=== PATIENT | female | born 1965 | race American Indian/Alaskan Native ===

== ENCOUNTER 2016-07-19 00:57 | Inpatient (IN) | payer OTHER ==
[2016-07-19 01:09] VITALS: BMI 43.2
--- NOTE | 2016-07-19 01:10 | C.PDOC ---
History Of Present Illness pt with history of right hemiplegia, presents with new onset of slurred speech since yesterday (07/17/16)yesterday. Significant other also noticed some right facial droop. no f/c/n/v Time Seen by Provider: 07/19/16 01:09 History Per: Patient, Family History/Exam Limitations: no limitations Onset/Duration Of Symptoms: Hrs (7) Current Symptoms Are (Timing): Still Present Severity: Moderate Pain Scale Rating Of: 5 Reports Recently: Seen In ED, Treated By A Physician, Hospitalized Recent travel outside of the [place]: No Additional History Per: Family Past Medical History Reviewed: Historical Data, Nursing Documentation, Vital Signs Vital Signs: Last Vital Signs Temp 97.7 F 07/19/16 01:33 Pulse 67 07/19/16 03:18 Resp 14 07/19/16 03:18 BP 189/99 H 07/19/16 03:18 Pulse Ox 98 07/19/16 03:18 - Medical History PMH: Anemia, Asthma, Diabetes, HTN, Hypercholesterolemia, Malignancy (Brain tumor - excised 3 yrs ago), Pneumonia, Seizures, TIA Denies: Alzheimer's Disease, Anxiety, Arthritis, Atrial Fibrillation, Bipolar Disorder, Bronchitis, Cardia Arrhythmia, CHF, COPD, Crohn's Disease, Dementia, Depression, Diverticulitis, Emphysema, Fibromyalgia, Fractures, Gastritis, Gastrointestinal Ulcer, Gall Bladder Disease, HIV, Hyperthyroidism, Hypothyroidism, Kidney Stones, Migraine, Mitral Valve Prolapse, Multiple Sclerosis, Osteoporosis, Pancreatitis, Paranoia, Parkinson's Disease, Peripheral Edema, Post Traumatic Stress Disorder, Pulmonary Embolism, Chronic Kidney Disease, Rheumatoid Arthritis, Schizophrenia, Sickle Cell Disease, Sexually Transmitted Disease, Sleep Apnea Surgical History: Denies: Appendectomy, CABG, Carotid Endarterectomy, Cholecystectomy, Coronary Stent, Pacemaker, Tonsillectomy - [facility] Procedures CENTRAL VENOUS CATHETER PLACEMENT WITH GUIDANCE (08/06/13) VENOUS CATHETERIZATION NEC (02/21/13) Family History: States: No Known Family Hx - Social History Hx Tobacco Use: Yes Hx Alcohol Use: No Hx Substance Use: No - Immunization History Hx Tetanus Toxoid Vaccination: (unable to obtain) Hx Influenza Vaccination: (unable to obtain) Hx Pneumococcal Vaccination: (unable to obtain) Review Of Systems Constitutional: Negative for: Fever, Chills Eyes: Positive for: Other (b/l blindness) ENT: Negative for: Throat Pain Cardiovascular: Negative for: Chest Pain, Palpitations Respiratory: Negative for: Shortness of Breath Gastrointestinal: Negative for: Nausea, Vomiting, Abdominal Pain Genitourinary: Negative for: Dysuria Musculoskeletal: Negative for: Back Pain Skin: Negative for: Rash Neurological: Positive for: Weakness (old right hemiparesis), Change in Speech Psych: Negative for: Depression Physical Exam - Physical Exam Appears: In Acute Distress Skin: Warm, Dry Head: Normacephalic Eye(s): bilateral: Other (b/l blind) Nose: Normal Oral Mucosa: Moist Teeth: Other (poor dentition) Neck: Trachea Midline, Supple Chest: Symmetrical Cardiovascular: Rhythm Regular Respiratory: No Rales, Rhonchi (bases), No Wheezing Gastrointestinal/Abdominal: Soft, No Tenderness, No Distention Back: Normal Inspection Extremity: No Pedal Edema Extremity: Bilateral: Atraumatic Neurological/Psych: Oriented x3, Dysarthria, Other (r facial droop( new) r hemiplegia( old)) Gait: Unable To Assess Extremity: Right: No Movement (r arm and leg) ED Course And Treatment - Laboratory Results Result Diagrams: 07/19/16 01:30 07/19/16 01:10 ECG: Interpreted By Me, Viewed By Me ECG Rhythm: Sinus Rhythm (57), Nonspecific Changes O2 Sat by Pulse Oximetry: 97 Pulse Ox Interpretation: Normal - Radiology CXR: Interpreted by Me, Viewed By Me CXR Interpretation: No: Pnemothorax Progress Note: code stroke Critical Care Time - Critical Care Note Total Time (in mins): 30 Documented critical care: time excludes all time spent performing seperately billable procedures. NIHSS Stroke Scale - Date/Time Evaluation Performed Date Performed: 07/19/16 Time Performed: 01:00 When Was NIHSS Performed: Baseline - How Severe is the Stroke Level of Consciousness: 0=Alert LOC to Questions: 0=Both comments correct LOC to commands: 0=Obeys both correctly Best Gaze: 0=Normal Visual: 0=No visual loss Facial: 1=Minor asymmetry Motor Arm - Left: 0=No drift Motor Arm - Right: 4=No movement Motor Leg - Left: 0=No drift Motor Leg - Right: 4=No movement Limb Ataxia: 0=Absent Sensory: 0=Normal Best Language: 0=No aphasia Dysarthia: 1=Mild to moderate slurring Extinction & Inattention (Neglect): 0=Normal, no object Score: 10 rTPA Inclusion/Exclusion - Refusal of Treatment Patient Refused Treatment: No - Inclusion Criteria for Altepase Patient is 18 years or Older: Yes The Clinical Diagnosis of Ischemic Stroke That is Causing a Potentially Disabling Neurological Deficit: No Time of Onset is Well Established to be Less Than 270 Minute Before Treatment Would Begin: No Risk/Benefit Discussed With Patient/Family Member Present: Yes - Exclusion Criteria for Altepase Uncontrolled Hypertension at Time of Treatment (Systolic BP above 185 or Diastolic BP above 110 mmHg): No History of: Brain Aneurysm Active Internal Bleeding: No Known Bleeding Diathesis Including but Not Limited to: Platelets Below 100,000/ mm,PTT Above 40 sec After Heparin Use, Current Use of Oral Anitcoagulant With INR Greater Than 1.7 or PT Greater Than 15 secs: No Evidence of an Intracranial Hemorrhage: No Evidence of Major Acute Infarct With Signs Greater Than 1/3 MCA Territory: No Suspicion of Subarachnoid Hemorrhage on Pretreatment Evaluation Even if CT Head Negative For Hemorrhage: No Disposition Discussed With DrSon: Shasha Amaya Comment: accepted the pt on his service and took over the care at 2:28 AM Doctor Will See Patient In The: Hospital Counseled Patient/Family Regarding: Studies Performed, Diagnosis - Disposition Disposition: HOSPITALIZED Disposition Time: 02:28 Condition: GUARDED - POA Present On Arrival: Poor Glycemic Control - Clinical Impression Clinical Impression: CVA, old, ataxia, Blind, TIA (transient ischemic attack) Decision To Admit - . Patient Diagnosis: CVA, old, ataxia, Blind, TIA (transient ischemic attack)
[2016-07-19 01:51] LABS: BASO # 0.1 K/uL (0.0-0.2)
[2016-07-19 01:53] LABS: BASO % 0.6 % (0.0-2.0); EOS # 0.6 K/uL (0.0-0.7); MEAN PLATELET VOLUME 7.5 fL (7.2-11.7)
[2016-07-19 01:56] LABS: CHLORIDE 101 mmol/L (98-107); POTASSIUM 3.6 mmol/L (3.6-5.2); SODIUM 140 mmol/L (132-148)
[2016-07-19 01:57] LABS: WHITE BLOOD COUNT 9.1 K/uL (4.8-10.8)
[2016-07-19 01:58] LABS: EOS % 6.1 % (0.0-4.0); HEMATOCRIT 35.9 % (34.0-47.0); LYMPH % 25.8 % (20.0-40.0); MEAN CELL VOLUME 72.3 fL (81.0-99.0); MEAN CORPUSCULAR HGB CONC 31.8 g/dL (33.0-37.0); NRBC % 0.1 % (0.0-2.0); RED CELL DISTRIBUTION WIDTH 18.1 % (11.5-14.5)
[2016-07-19 01:58] LABS: BILIRUBIN,TOTAL 0.7 mg/dL (0.2-1.3); CARBON DIOXIDE 25 mmol/L (22-30); CHOLESTEROL 168 mg/dL (0-199); GFR AFRICAN-AMERICAN > 60
[2016-07-19 01:59] LABS: ALB/GLOB RATIO 1.1 (1.0-2.1); ALKALINE PHOSPHATASE 123 U/L (38-126); ALT/SGPT 22 U/L (9-52); AST/SGOT 20 U/L (14-36); BLOOD UREA NITROGEN 14 mg/dL (7-17); CALCIUM 9.4 mg/dl (8.6-10.4); GLUCOSE,RANDOM 126 mg/dL (65-105); TOTAL PROTEIN 8.3 g/dL (6.3-8.3)
[2016-07-19 01:59] LABS: LYMPH # 2.4 K/uL (1.0-4.3); MONO # 0.5 K/uL (0.0-0.8)
[2016-07-19 04:32] LABS: RBC URINE < 1 /hpf (0-3); URINE BILIRUBIN NEGATIVE (NEGATIVE); URINE BLOOD NEGATIVE (NEGATIVE); URINE COLOR Yellow (YELLOW); URINE GLUCOSE (UA) NORMAL (Normal); URINE KETONE 1+ mg/dL (NEGATIVE); URINE LEUKOCYTE ESTERASE NEG Leu/uL (Negative); URINE PROTEIN 1+ mg/dL (NEGATIVE); URINE UROBILINOGEN NORMAL mg/dL (0.2-1.0); WBC URINE 1 /hpf (0-5)
[2016-07-19] MEDS: Enoxaparin 40 mg Syringe SC SCH (09:37)
--- NOTE | 2016-07-19 11:27 | CT ---
PROCEDURE: CT HEAD WITHOUT CONTRAST. HISTORY: Code Stroke COMPARISON: None available. TECHNIQUE: Axial computed tomography images were obtained through the head/brain without intravenous contrast. Radiation dose: Total exam DLP = 82.16 mGy-cm. This CT exam was performed using one or more of the following dose reduction techniques: Automated exposure control, adjustment of the mA and/or kV according to patient size, and/or use of iterative reconstruction technique. FINDINGS: HEMORRHAGE: No acute intracranial hemorrhage. . BRAIN: Large left frontotemporal and parietal craniotomy/ craniectomy defect and partial cranioplasty. An aneurysm clip in the region of the distal aspect of the left cavernous carotid artery near the expected origin of the left ophthalmic artery. Formal four-vessel catheter angiogram may be required for definitive evaluation of successful aneurysm clipping if not already performed. Moderate to significant Encephalomalacia left temporal and left frontal region with associated ex vacuo dilatation of the left lateral ventricle and in particular the left frontal horn. There is also mild focal dilatation of the 3rd ventricle. Questionable bilateral thalamic chronic infarcts. . There is a right-sided frontal nelli hole through which a COMPLEX DIRECTOR shunt tube enters the calvarium courses so the across the right frontal lobe and terminates across midline in the left frontal horn. VENTRICLES: Mentioned above, there is dilatation of the left lateral ventricle particularly the left frontal horn and 3rd ventricle. CALVARIUM: As above. Additionally, there appears to have been removal portions of the left orbital roof. PARANASAL SINUSES: Mucosal thickening of both maxillary sinuses as well as ethmoid air complex. . Questionable fracture left lamina papyracea. MASTOID AIR CELLS: Unremarkable as visualized. No inflammatory changes. OTHER FINDINGS: None. IMPRESSION: No acute intracranial hemorrhage. Large left frontotemporal and parietal craniotomy/ craniectomy defect with partial cranioplasty. An aneurysm clip in the region of the distal aspect of the left cavernous carotid artery near the expected origin of the left ophthalmic artery. Note that the possibility of residual and a recurrent aneurysm cannot be excluded on this exam. . Formal four-vessel catheter angiogram may be required for definitive evaluation of of successful aneurysm clipping if not already performed. Moderate to significant encephalomalacia left temporal and left frontal region with associated ex vacuo dilatation of the left lateral ventricle and in particular the left frontal horn. There is also mild focal dilatation of the 3rd ventricle. Questionable bilateral thalamic chronic infarcts. . There is a right-sided frontal nelli hole through which a COMPLEX DIRECTOR shunt tube enters the calvarium courses so the across the right frontal lobe and terminates across midline in the left frontal horn. Note that noncontrast CT scan brain may miss small hyperacute infarct. Clinical correlation recommended
--- NOTE | 2016-07-19 13:37 | CP.PCM.HP ---
Past Patient History - Infectious Disease Hx of Infectious Diseases: None - Tetanus Immunizations Tetanus Immunization: Unknown - Past Medical History & Family History Past Medical History?: Yes - Past Social History Smoking Status: Light Smoker < 10 Cigarettes Daily - CARDIAC Hx Hypercholesterolemia: Yes Hx Hypertension: Yes - PULMONARY Hx Asthma: Yes Hx Pneumonia: Yes - NEUROLOGICAL HX Cerebrovascular Accident: Yes (residual right side weakness) - HEENT Hx Blind: Yes Hx Macular Degeneration: (unknown) - RENAL Hx Chronic Kidney Disease: No Hx Kidney Stones: No - ENDOCRINE/METABOLIC Hx Diabetes Mellitus Type 2: Yes - HEMATOLOGICAL/ONCOLOGICAL Hx Anemia: Yes - INTEGUMENTARY Hx Dermatological Problems: No - MUSCULOSKELETAL/RHEUMATOLOGICAL Hx Falls: Yes - GASTROINTESTINAL Hx Crohn's Disease: No Hx Diverticulitis: No Hx Gall Bladder Disease: No Hx Gastritis: No Hx Pancreatitis: No - GENITOURINARY/GYNECOLOGICAL Hx Sexually Transmitted Disorders: No - PSYCHIATRIC Hx Anxiety: No Hx Bipolar Disorder: No Hx Depression: No Hx Paranoia: No Hx Post Traumatic Stress Disorder: No Hx Schizophrenia: No Hx Substance Use: No - SURGICAL HISTORY Hx Appendectomy: No Hx Carotid Endarterectomy: No Hx Cholecystectomy: No Hx Coronary Artery Bypass Graft: No Hx Coronary Stent: No Hx Tonsillectomy: No - ANESTHESIA Hx Anesthesia: Yes Hx Anesthesia Reactions: No Hx Malignant Hyperthermia: No Meds Allergies/Adverse Reactions: Allergies Allergy/AdvReac Type Severity Reaction Status Date / Time carbamazepine Allergy Severe ANAPHYLAXIS Verified 07/06/15 12:08 maitake mushroom Allergy RASH Verified 07/06/15 12:08 button mushroom Allergy RASH Uncoded 07/06/15 12:08 Physical Exam - Constitutional Appears: Well - Head Exam Head Exam: ATRAUMATIC, NORMAL INSPECTION, NORMOCEPHALIC - Eye Exam Eye Exam: EOMI, Normal appearance, PERRL Pupil Exam: NORMAL ACCOMODATION, PERRL - ENT Exam ENT Exam: Mucous Membranes Moist, Normal Exam - Neck Exam Neck exam: Positive for: Normal Inspection - Respiratory Exam Respiratory Exam: Decreased Breath Sounds - Cardiovascular Exam Cardiovascular Exam: REGULAR RHYTHM, +S1, +S2 - GI/Abdominal Exam GI & Abdominal Exam: Diminished Bowel Sounds, Soft - Rectal Exam Rectal Exam: Deferred Results - Vital Signs Recent Vital Signs: Last Vital Signs Temp 98 F 07/19/16 09:54 Pulse 55 L 07/19/16 09:54 Resp 18 07/19/16 09:54 BP 144/73 06/03/17 09:54 Pulse Ox 97 07/19/16 09:54 - Labs Result Diagrams: 07/19/16 01:30 07/19/16 01:10 Labs: Laboratory Results - last 24 hr 07/19/16 07/19/16 07/19/16 04:27 07:51 11:35 POC Glucose (mg/dL) 112 H 95 Urine Color Yellow Urine Clarity Clear Urine pH 5.0 Ur Specific Chloride 1.015 Urine Protein 1+ H Urine Glucose (UA) Normal Urine Ketones 1+ H Urine Blood Negative Urine Nitrate Negative Urine Bilirubin Negative Urine Urobilinogen Normal Ur Leukocyte Esterase Neg Urine WBC (Auto) 1 Urine RBC (Auto) < 1 Ur Squamous Epith Cells 3
[2016-07-19] MEDS ORDERED: PRAVASTATIN SODIUM 80 MG PO SCH (14:45)
--- NOTE | 2016-07-19 17:28 | RAD ---
HISTORY: cva COMPARISON: No prior. FINDINGS: LUNGS: Hazy appearance of the left lung could be due to some patient rotation as well as atelectasis and low lung volumes however layering effusion cannot be excluded PLEURA: No significant pleural effusion identified, no pneumothorax apparent. CARDIOVASCULAR: Normal. OSSEOUS STRUCTURES: No significant abnormalities. VISUALIZED UPPER ABDOMEN: Normal. OTHER FINDINGS: Hazy appearance of the left lung could be due to some patient rotation as well as atelectasis and low lung volumes however layering effusion cannot be excluded .There appears to be an in situ right-sided LEAD TRAINER shunt tube all which extends from the right base of neck over the jose guadalupe thorax and is poorly seen below the diaphragm. IMPRESSION: No active disease.
--- NOTE | 2016-07-19 17:45 | CON ---
DATE: 07/19/2016 CHIEF COMPLAINT: Questionable slurred speech and right facial droop. HISTORY OF PRESENT ILLNESS: This is a 50-year-old woman with a history of brain zain or excised 3 years ago with evidence of a large left frontotemporal parietal craniotomy and craniotom y defects with partial cranioplasty, aneurysmal clipping in the region of the distal aspect of the le ft cavernous artery near the of the left ophthalmic artery with encephalomalacia in the tempora l and left frontal region with residual right-sided weakness as seen on the CAT scan with evidence of residual right-sided spastic weakness, history of hypertension, hypercholesterolemia, pneumonia, sei zures, legally blind, especially in the left eye, who presents to the office with transient slurred s peech and questionable right facial droop. She had elevated systolic and diastolic blood pressures _ ____ in the ER. Currently, she is on aspirin 81 mg for stroke prevention as well as Crestor 80 mg fo r dyslipidemia. She is n Keppra 500 mg p.o. b.i.d. for seizure prophylaxis. Currently, she is follo wing simple commands. Has right-sided residual spastic hemiplegia. PAST MEDICAL HISTORY: Anemia, asthma, diabetes type 2, hypertension, hypercholesterolemia, history o f brain tumor excision 3 years ago observed on CAT scan on the left frontotemporal parietal region wi th history of left frontotemporal parietal craniotomy, history of left temporal left frontal area str gerardo with residual right-sided spastic hemiparesis. REVIEW OF SYSTEMS: A 14-point review of systems is negative except for the HPI. FAMILY HISTORY: Noncontributory. MEDICATIONS: Reviewed on nurses' reconciliation sheet. ALLERGIES: CARBAMAZEPINE AND MUSHROOMS. PHYSICAL EXAMINATION: VITAL SIGNS: Temperature is 97.6, pulse rate is 67, blood pressure 166/89, respiratory rate 20, oxyg en saturation 95% on room air. GENERAL: The patient is sitting up in bed in no acute distress. HEENT: Atraumatic, normocephalic. PERRLA. Extraocular muscles intact. NECK: Supple, no JVD, no adenopathy noted. LUNGS: Clear to auscultation. No adventitious sounds. HEART: S1, S2, normal rate and rhythm. No murmurs, rubs, or gallops. ABDOMEN: Soft, nontender, nondistended. Bowel sounds are present. EXTREMITIES: No clubbing, no cyanosis. Peripheral pulses 2+ felt bilaterally. NEUROLOGIC: The patient is alert and oriented to person and place, not much of month and year. Reca ll after 5 minutes is 0/3. Poor attention span, slow thought process. Legally blind. Cranial nerve s II-XII: Has probably some residual mild right-sided facial droop from the prior CVA. Otherwise, c ranial nerves II-XII are intact. MOTOR: Increased spastic tone on the right from residual right-sided hemiplegia from prior CVA. Lef t side is intact. SENSORY: Had decreased light touch to and pinprick up to the calves. Has decreased vibrations of th e toes. DTRs are 1+, is 1 at the knees and absent at the ankles. COORDINATION AND GAIT: Deferred for now. LABORATORY DATA: Sodium 140, potassium 3.6, chloride of 101, carbon dioxide of 25, BUN of 14, creati nine 0.6, random glucose 126, A1c of 7. ASSESSMENT AND PLAN: This is a 50-year-old woman with a history of a brain tumor ex cised 3 years ago in 2013, with evidence of large left frontal temporal parietal craniotomy/craniecto my defect with partial cranioplasty evident on CAT scan. Has a history of aneurysmal clipping in the distal aspect of the left cavernous carotid artery near the of the left thalamic artery, histo ry of left temporal and left frontal encephalomalacia seen on CAT scan consistent with old stroke wit h residual right-sided spastic hemiplegia, diabetes, hypertension, history of seizures on Keppra, who came in for questionable slurred speech and with questionable right facial droop. She was found to have elevated blood pressures systolically and diastolically. Likely, the patient's transient sympto ms are secondary to hypertensive urgency superimposed on chronic underlying medical conditions bringi ng out stroke-like symptoms. At this time, recommend: 1. To continue with aspirin 81 mg and Crestor 80 mg p.o. daily for stroke prevention. 2. Could have been a questionable seizure-like focus so therefore recommend to continue with her Kep pra 500 mg p.o. b.i.d. and recommend judicious use of her seizure medications. 3. She needs better blood sugar control, keep blood sugar between 140-180. A1c is at 7. 4. Get a physical therapy evaluation and keep her systolic blood pressure between 130-140 mmHg. She is clinically stable from my standpoint. No change of any management and continue with current p resent medical management. Please reconsult if necessary. John Blanco MD cc: [id number] TT: 07/19/2016 17:44:59 Confirmation # [id number] Dictation # [id number] dn
--- NOTE | 2016-07-20 07:52 | CP.PCM.CON ---
Past Patient History - Infectious Disease Hx of Infectious Diseases: None - Tetanus Immunizations Tetanus Immunization: Unknown - Past Medical History & Family History Past Medical History?: Yes - Past Social History Smoking Status: Light Smoker < 10 Cigarettes Daily - CARDIAC Hx Hypercholesterolemia: Yes Hx Hypertension: Yes - PULMONARY Hx Asthma: Yes Hx Pneumonia: Yes - NEUROLOGICAL HX Cerebrovascular Accident: Yes (residual right side weakness) - HEENT Hx Blind: Yes Hx Macular Degeneration: (unknown) - RENAL Hx Chronic Kidney Disease: No Hx Kidney Stones: No - ENDOCRINE/METABOLIC Hx Diabetes Mellitus Type 2: Yes - HEMATOLOGICAL/ONCOLOGICAL Hx Anemia: Yes - INTEGUMENTARY Hx Dermatological Problems: No - MUSCULOSKELETAL/RHEUMATOLOGICAL Hx Falls: Yes - GASTROINTESTINAL Hx Crohn's Disease: No Hx Diverticulitis: No Hx Gall Bladder Disease: No Hx Gastritis: No Hx Pancreatitis: No - GENITOURINARY/GYNECOLOGICAL Hx Sexually Transmitted Disorders: No - PSYCHIATRIC Hx Anxiety: No Hx Bipolar Disorder: No Hx Depression: No Hx Paranoia: No Hx Post Traumatic Stress Disorder: No Hx Schizophrenia: No Hx Substance Use: No - SURGICAL HISTORY Hx Appendectomy: No Hx Carotid Endarterectomy: No Hx Cholecystectomy: No Hx Coronary Artery Bypass Graft: No Hx Coronary Stent: No Hx Tonsillectomy: No - ANESTHESIA Hx Anesthesia: Yes Hx Anesthesia Reactions: No Hx Malignant Hyperthermia: No Meds Allergies/Adverse Reactions: Allergies Allergy/AdvReac Type Severity Reaction Status Date / Time carbamazepine Allergy Severe ANAPHYLAXIS Verified 07/06/15 12:08 maitake mushroom Allergy RASH Verified 07/06/15 12:08 button mushroom Allergy RASH Uncoded 07/06/15 12:08 - Medications Medications: Current Medications Amlodipine Besylate (Norvasc) 5 mg PO DAILY [facility] Last Admin: 07/19/16 16:07 Dose: 5 mg Aspirin (Ecotrin) 81 mg PO DAILY [facility] Last Admin: 07/19/16 18:14 Dose: 81 mg Enoxaparin Sodium (Lovenox) 40 mg SC DAILY [facility] Last Admin: 07/19/16 09:37 Dose: 40 mg Levetiracetam (Keppra) 500 mg PO BID [facility] Last Admin: 07/19/16 18:14 Dose: 500 mg Lisinopril (Zestril) 10 mg PO DAILY [facility] Last Admin: 07/19/16 16:07 Dose: 10 mg Loratadine (Claritin) 10 mg PO DAILY [facility] Last Admin: 07/19/16 16:07 Dose: 10 mg Metformin HCl (Glucophage) 500 mg PO DAILY@0800 [facility] Last Admin: 07/19/16 16:06 Dose: 500 mg Metoprolol Tartrate (Lopressor) 25 mg PO BID [facility] Last Admin: 07/19/16 18:15 Dose: 25 mg Pantoprazole Sodium (Protonix Inj) 40 mg IVP DAILY [facility] Last Admin: 07/19/16 09:37 Dose: 40 mg Pneumococcal Polyvalent Vaccine (Pneumovax 23 Vaccine) 0.5 ml IM .ONCE ONE Stop: 07/20/16 10:01 Rosuvastatin Calcium (Crestor) 20 mg PO [facility] Last Admin: 07/19/16 21:57 Dose: 20 mg Results - Vital Signs Recent Vital Signs: Last Vital Signs Temp 97.4 F L 07/20/16 00:45 Pulse 59 L 07/20/16 00:45 Resp 20 07/20/16 00:45 BP 144/87 07/20/16 00:45 Pulse Ox 97 07/20/16 00:45 - Labs Result Diagrams: 07/23/16 14:05 07/23/16 14:05 Labs: Laboratory Results - last 24 hr 07/19/16 07/19/16 07/19/16 07:51 11:35 17:03 POC Glucose (mg/dL) 112 H 95 96 07/19/16 07/20/16 21:10 07:00 POC Glucose (mg/dL) 127 H 116 H
[2016-07-20] MEDS: Enoxaparin 40 mg Syringe SC SCH (09:32)
--- NOTE | 2016-07-20 09:45 | CT ---
PROCEDURE: CT HEAD WITHOUT CONTRAST. HISTORY: tia COMPARISON: Comparison made with prior CT scan of the brain dated 07/19/2016. TECHNIQUE: Axial computed tomography images were obtained through the head/brain without intravenous contrast. Radiation dose: Total exam DLP = 868 mGy-cm. This CT exam was performed using one or more of the following dose reduction techniques: Automated exposure control, adjustment of the mA and/or kV according to patient size, and/or use of iterative reconstruction technique. FINDINGS: HEMORRHAGE: No acute parenchymal, subarachnoid or extra-axial hemorrhage. BRAIN: Re- demonstrated is large area of partially cystic encephalomalacia left frontotemporal region with involvement of the left basal ganglia subjacent to a large left-sided craniotomy/craniectomy defect with partial cranioplasty material. Aneurysm clip in the region of the left supraclinoid cavernous carotid artery possibly at the origin of the left ophthalmic artery unchanged. Also again seen are small bilateral basal ganglia chronic appearing infarcts. Vascular calcifications again noted VENTRICLES: Ex vacuo dilatation left frontal horn and 3rd ventricle. In situ FELTING MACHINE OPERATOR shunt to with tip terminating in the left frontal horn unchanged from prior study CALVARIUM: As above PARANASAL SINUSES: Mucosal thickening again seen both maxillary sinuses. Probable small osteoma right anterior ethmoid air cell. MASTOID AIR CELLS: Unremarkable as visualized. No inflammatory changes. OTHER FINDINGS: None. IMPRESSION: No acute intracranial hemorrhage. Re- demonstrated is large area of partially cystic encephalomalacia left frontotemporal region with involvement of the left basal ganglia subjacent to a large left-sided craniotomy/craniectomy defect with partial cranioplasty material. Aneurysm clip in the region of the left supraclinoid cavernous carotid artery possibly of the origin of the left ophthalmic artery unchanged. . Also again seen are small bilateral basal ganglia chronic appearing infarcts. No change right side FELTING MACHINE OPERATOR shunt tube as above no change
[2016-07-20] MEDS ORDERED: Pneumococcal 23-Valent Vaccine IM ONE (10:00)
--- NOTE | 2016-07-20 12:26 | CP.PCM.PN ---
Subjective - Date & Time of Evaluation Date of Evaluation: 07/20/16 Objective - Vital Signs/Intake and Output Vital Signs (last 24 hours): Temp Pulse Resp BP Pulse Ox 98.6 F 61 20 142/82 97 07/20/16 08:27 07/20/16 08:27 07/20/16 08:27 07/20/16 09:38 07/20/16 08:27 - Medications Medications: Current Medications Amlodipine Besylate (Norvasc) 5 mg PO DAILY [facility] Last Admin: 07/20/16 09:38 Dose: 5 mg Aspirin (Ecotrin) 81 mg PO DAILY [facility] Last Admin: 07/20/16 09:39 Dose: 81 mg Enoxaparin Sodium (Lovenox) 40 mg SC DAILY [facility] Last Admin: 07/20/16 09:32 Dose: 40 mg Levetiracetam (Keppra) 500 mg PO BID [facility] Last Admin: 07/20/16 09:37 Dose: 500 mg Lisinopril (Zestril) 10 mg PO DAILY [facility] Last Admin: 07/20/16 11:37 Dose: Not Given Loratadine (Claritin) 10 mg PO DAILY [facility] Last Admin: 07/20/16 09:38 Dose: 10 mg Metformin HCl (Glucophage) 500 mg PO DAILY@0800 [facility] Last Admin: 07/20/16 09:37 Dose: 500 mg Metoprolol Tartrate (Lopressor) 25 mg PO BID [facility] Last Admin: 07/20/16 09:38 Dose: 25 mg Pantoprazole Sodium (Protonix Inj) 40 mg IVP DAILY [facility] Last Admin: 07/20/16 09:33 Dose: 40 mg Rosuvastatin Calcium (Crestor) 20 mg PO HS [facility] Last Admin: 07/19/16 21:57 Dose: 20 mg - Labs Labs: PT 11.5 SECONDS (9.7-12.2) 07/19/16 01:30 INR 1.0 07/19/16 01:30 APTT 30 SECONDS (21-34) 07/19/16 01:30 Assessment and Plan - Assessment and Plan (Free Text) Plan: cardio neuro neurosurg shane obando
--- NOTE | 2016-07-21 09:59 | CP.PCM.PN ---
<Jaime Pacheco - Last Filed: 07/21/16 09:56> Subjective - Date & Time of Evaluation Date of Evaluation: 07/21/16 Time of Evaluation: 09:56 - Subjective Subjective: Pt seen and examined at bedside. Pt with no acute events overnight as per nursing. Pt with slurred speech this morning, which has been consistent with her presentation since admission. Pt also complaining of pain. Denies CP or SOB. Objective - Vital Signs/Intake and Output Vital Signs (last 24 hours): Temp Pulse Resp BP Pulse Ox 97.9 F 60 20 147/81 97 07/21/16 08:30 07/21/16 08:30 07/21/16 08:30 07/21/16 08:30 07/21/16 08:30 Intake and Output: 07/21/16 07/21/16 06:59 18:59 Intake Total 240 Balance 240 - Medications Medications: Current Medications Acetaminophen (Tylenol 325mg Tab) 650 mg PO Q6 PRN PRN Reason: Pain Last Admin: 07/21/16 08:34 Dose: 650 mg Amlodipine Besylate (Norvasc) 5 mg PO DAILY [facility] Last Admin: 07/20/16 09:38 Dose: 5 mg Aspirin (Ecotrin) 81 mg PO DAILY [facility] Last Admin: 07/20/16 09:39 Dose: 81 mg Enoxaparin Sodium (Lovenox) 40 mg SC DAILY [facility] Last Admin: 07/20/16 09:32 Dose: 40 mg Levetiracetam (Keppra) 500 mg PO BID [facility] Last Admin: 07/20/16 18:50 Dose: 500 mg Lisinopril (Zestril) 10 mg PO DAILY [facility] Last Admin: 07/20/16 13:44 Dose: 10 mg Loratadine (Claritin) 10 mg PO DAILY [facility] Last Admin: 07/20/16 09:38 Dose: 10 mg Metformin HCl (Glucophage) 500 mg PO DAILY@0800 [facility] Last Admin: 07/21/16 08:34 Dose: 500 mg Metoprolol Tartrate (Lopressor) 25 mg PO BID [facility] Last Admin: 07/20/16 18:50 Dose: Not Given Pantoprazole Sodium (Protonix Inj) 40 mg IVP DAILY [facility] Last Admin: 07/20/16 09:33 Dose: 40 mg Rosuvastatin Calcium (Crestor) 20 mg PO HS [facility] Last Admin: 07/20/16 22:46 Dose: 20 mg - Labs Labs: PT 11.5 SECONDS (9.7-12.2) 07/19/16 01:30 INR 1.0 07/19/16 01:30 APTT 30 SECONDS (21-34) 07/19/16 01:30 - Constitutional Appears: Non-toxic, No Acute Distress - ENT Exam ENT Exam: Mucous Membranes Dry - Respiratory Exam Respiratory Exam: Clear to Ausculation Bilateral, NORMAL BREATHING PATTERN. absent: Rhonchi, Wheezes - Cardiovascular Exam Cardiovascular Exam: RRR, +S1, +S2 - GI/Abdominal Exam GI & Abdominal Exam: Soft, Normal Bowel Sounds. absent: Tenderness - Neurological Exam Neurological Exam: Alert, Awake Assessment and Plan (1) TIA (transient ischemic attack) Assessment & Plan: Pt currently being followed neurology, who state symptoms likely due to hypertensive urgency Continue ASA and crestor Continue BP control with lopressor, lisinopril, and amlodipine Status: Acute (2) CVA, old, ataxia Assessment & Plan: Hx of brain tumor excision Stroke-like symptoms exacerbated by elevated BP Continue current medical management Status: Chronic (3) Hypertension Assessment & Plan: Hemodynamically stable at this time BP controlled Continue Lopressor, Lasix, and Amlodipine Status: Chronic <Royce Pedraza - Last Filed: 07/21/16 11:38> Objective - Vital Signs/Intake and Output Vital Signs (last 24 hours): Temp Pulse Resp BP Pulse Ox 97.9 F 60 20 147/81 97 07/21/16 08:30 07/21/16 08:30 07/21/16 08:30 07/21/16 10:07 07/21/16 08:30 Intake and Output: 07/21/16 07/21/16 06:59 18:59 Intake Total 240 Balance 240 - Medications Medications: Current Medications Acetaminophen (Tylenol 325mg Tab) 650 mg PO Q6 PRN PRN Reason: Pain Last Admin: 07/21/16 08:34 Dose: 650 mg Amlodipine Besylate (Norvasc) 5 mg PO DAILY [facility] Last Admin: 07/21/16 10:08 Dose: 5 mg Aspirin (Ecotrin) 81 mg PO DAILY [facility] Last Admin: 07/21/16 10:08 Dose: 81 mg Enoxaparin Sodium (Lovenox) 40 mg SC DAILY [facility] Last Admin: 07/21/16 10:07 Dose: 40 mg Levetiracetam (Keppra) 500 mg PO BID [facility] Last Admin: 07/21/16 10:08 Dose: 500 mg Lisinopril (Zestril) 10 mg PO DAILY [facility] Last Admin: 07/21/16 10:07 Dose: 10 mg Loratadine (Claritin) 10 mg PO DAILY [facility] Last Admin: 07/21/16 10:07 Dose: 10 mg Metformin HCl (Glucophage) 500 mg PO DAILY@0800 [facility] Last Admin: 07/21/16 08:34 Dose: 500 mg Metoprolol Tartrate (Lopressor) 25 mg PO BID [facility] Last Admin: 07/21/16 10:07 Dose: 25 mg Pantoprazole Sodium (Protonix Inj) 40 mg IVP DAILY [facility] Last Admin: 07/21/16 10:08 Dose: 40 mg Rosuvastatin Calcium (Crestor) 20 mg PO HS [facility] Last Admin: 07/20/16 22:46 Dose: 20 mg - Labs Labs: PT 11.5 SECONDS (9.7-12.2) 07/19/16 01:30 INR 1.0 07/19/16 01:30 APTT 30 SECONDS (21-34) 07/19/16 01:30 Attending/Attestation - Attestation I have personally seen and examined this patient.: Yes I have fully participated in the care of the patient.: Yes I have reviewed all pertinent clinical information, including history, physical exam and plan: Yes Notes (Text): 07/21/16 11:38 symptoms improved rate controlled
[2016-07-21] MEDS: Enoxaparin 40 mg Syringe SC SCH (10:07)
[2016-07-21 13:55] LABS: BASO # 0.1 K/uL (0.0-0.2); BASO % 0.9 % (0.0-2.0); EOS # 0.6 K/uL (0.0-0.7); EOS % 8.1 % (0.0-4.0); HEMATOCRIT 35.9 % (34.0-47.0); LYMPH # 3.3 K/uL (1.0-4.3); LYMPH % 43.4 % (20.0-40.0); MEAN CELL VOLUME 72.1 fL (81.0-99.0); MEAN CORPUSCULAR HEMOGLOBIN 22.4 pg (27.0-31.0); MEAN CORPUSCULAR HGB CONC 31.1 g/dL (33.0-37.0); MEAN PLATELET VOLUME 7.2 fL (7.2-11.7); MONO # 0.4 K/uL (0.0-0.8); MONO % 5.7 % (0.0-10.0); RED CELL DISTRIBUTION WIDTH 17.7 % (11.5-14.5); WHITE BLOOD COUNT 7.6 K/uL (4.8-10.8)
[2016-07-21 14:09] LABS: CHLORIDE 99 mmol/L (98-107)
[2016-07-21 14:10] LABS: POTASSIUM 3.6 mmol/L (3.6-5.2); SODIUM 140 mmol/L (132-148)
[2016-07-21 14:12] LABS: ALB/GLOB RATIO 1.1 (1.0-2.1); ALKALINE PHOSPHATASE 102 U/L (38-126); ALT/SGPT 30 U/L (9-52); AST/SGOT 33 U/L (14-36); BILIRUBIN,TOTAL 0.5 mg/dL (0.2-1.3); BLOOD UREA NITROGEN 11 mg/dL (7-17); CARBON DIOXIDE 28 mmol/L (22-30); GFR AFRICAN-AMERICAN > 60; GLUCOSE,RANDOM 134 mg/dL (65-105); TOTAL PROTEIN 7.8 g/dL (6.3-8.3)
[2016-07-21 14:13] LABS: CALCIUM 8.9 mg/dl (8.6-10.4)
--- NOTE | 2016-07-21 17:35 | CP.PCM.PN ---
Subjective - Date & Time of Evaluation Date of Evaluation: 07/21/16 Time of Evaluation: 12:00 - Subjective Subjective: clinically same Objective - Vital Signs/Intake and Output Vital Signs (last 24 hours): Temp Pulse Resp BP Pulse Ox 98.8 F 67 20 155/107 H 97 07/21/16 15:59 07/21/16 17:20 07/21/16 15:59 07/21/16 17:20 07/21/16 15:59 Intake and Output: 07/21/16 07/21/16 06:59 18:59 Intake Total 240 400 Balance 240 400 - Medications Medications: Current Medications Acetaminophen (Tylenol 325mg Tab) 650 mg PO Q6 PRN PRN Reason: Pain Last Admin: 07/21/16 14:45 Dose: 650 mg Amlodipine Besylate (Norvasc) 5 mg PO DAILY [facility] Last Admin: 07/21/16 10:08 Dose: 5 mg Aspirin (Ecotrin) 81 mg PO DAILY [facility] Last Admin: 07/21/16 10:08 Dose: 81 mg Enoxaparin Sodium (Lovenox) 40 mg SC DAILY [facility] Last Admin: 07/21/16 10:07 Dose: 40 mg Levetiracetam (Keppra) 500 mg PO BID [facility] Last Admin: 07/21/16 17:25 Dose: 500 mg Lisinopril (Zestril) 10 mg PO DAILY [facility] Last Admin: 07/21/16 10:07 Dose: 10 mg Loratadine (Claritin) 10 mg PO DAILY [facility] Last Admin: 07/21/16 10:07 Dose: 10 mg Metformin HCl (Glucophage) 500 mg PO DAILY@0800 [facility] Last Admin: 07/21/16 08:34 Dose: 500 mg Metoprolol Tartrate (Lopressor) 25 mg PO BID [facility] Last Admin: 07/21/16 17:26 Dose: 25 mg Pantoprazole Sodium (Protonix Inj) 40 mg IVP DAILY [facility] Last Admin: 07/21/16 10:08 Dose: 40 mg Rosuvastatin Calcium (Crestor) 20 mg PO HS [facility] Last Admin: 07/20/16 22:46 Dose: 20 mg - Labs Labs: 07/21/16 13:51 07/21/16 13:51 PT 11.5 SECONDS (9.7-12.2) 07/19/16 01:30 INR 1.0 07/19/16 01:30 APTT 30 SECONDS (21-34) 07/19/16 01:30 - Constitutional Appears: Well - Head Exam Head Exam: ATRAUMATIC, NORMAL INSPECTION, NORMOCEPHALIC - Eye Exam Eye Exam: EOMI, Normal appearance, PERRL Pupil Exam: NORMAL ACCOMODATION, PERRL - ENT Exam ENT Exam: Mucous Membranes Moist, Normal Exam - Neck Exam Neck Exam: Full ROM, Normal Inspection. absent: Lymphadenopathy - Respiratory Exam Respiratory Exam: Decreased Breath Sounds - Cardiovascular Exam Cardiovascular Exam: REGULAR RHYTHM, +S1, +S2 - GI/Abdominal Exam GI & Abdominal Exam: Soft, Diminished Bowel Sounds - Rectal Exam Rectal Exam: Deferred
[2016-07-21] MEDS ORDERED: HYDROmorphone 1 mg/ml ISec IVP STA (21:24)
[2016-07-21] MEDS ORDERED: HYDROmorphone 1 mg/ml ISec IVP PRN (23:08)
[2016-07-22] MEDS: Enoxaparin 40 mg Syringe SC SCH (09:55)
--- NOTE | 2016-07-22 10:59 | CP.PCM.PN ---
<Jaime Pacheco - Last Filed: 07/22/16 16:24> Subjective - Date & Time of Evaluation Date of Evaluation: 07/22/16 Time of Evaluation: 10:57 - Subjective Subjective: Pt seen and examined at bedside. No acute events overnight as per nursing. Pt reports she is still in pain, despite being placed on Dilaudid yesterday. Pt denies any improvement in her condition and difficulty speaking remains the same. Denies CP, SOB, N/V/D. Objective - Vital Signs/Intake and Output Vital Signs (last 24 hours): Temp Pulse Resp BP Pulse Ox 98.6 F 74 20 148/89 100 07/22/16 00:46 07/22/16 06:36 07/22/16 00:46 07/22/16 09:56 07/22/16 00:46 Intake and Output: 07/22/16 07/22/16 06:59 18:59 Intake Total 120 Balance 120 - Medications Medications: Current Medications Acetaminophen (Tylenol 325mg Tab) 650 mg PO Q6 PRN PRN Reason: Pain Last Admin: 07/22/16 10:47 Dose: 650 mg Amlodipine Besylate (Norvasc) 5 mg PO DAILY [facility] Last Admin: 07/22/16 09:56 Dose: 5 mg Aspirin (Ecotrin) 81 mg PO DAILY [facility] Last Admin: 07/22/16 09:56 Dose: 81 mg Enoxaparin Sodium (Lovenox) 40 mg SC DAILY [facility] Last Admin: 07/22/16 09:55 Dose: 40 mg Hydrochlorothiazide (Microzide) 12.5 mg PO DAILY [facility] Last Admin: 07/22/16 09:56 Dose: 12.5 mg Hydromorphone HCl (Dilaudid) 1 mg IVP Q8 PRN PRN Reason: Pain, severe (8-10) Levetiracetam (Keppra) 500 mg PO BID [facility] Last Admin: 07/22/16 09:56 Dose: 500 mg Lisinopril (Zestril) 10 mg PO DAILY [facility] Last Admin: 07/22/16 09:56 Dose: 10 mg Loratadine (Claritin) 10 mg PO DAILY [facility] Last Admin: 07/22/16 09:56 Dose: 10 mg Metformin HCl (Glucophage) 500 mg PO DAILY@0800 [facility] Last Admin: 07/22/16 08:32 Dose: 500 mg Metoprolol Tartrate (Lopressor) 25 mg PO BID [facility] Last Admin: 07/22/16 09:56 Dose: 25 mg Pantoprazole Sodium (Protonix Inj) 40 mg IVP DAILY [facility] Last Admin: 07/22/16 10:04 Dose: Not Given Rosuvastatin Calcium (Crestor) 20 mg PO HS [facility] Last Admin: 07/21/16 21:35 Dose: 20 mg - Labs Labs: 07/21/16 13:51 07/21/16 13:51 PT 11.5 SECONDS (9.7-12.2) 07/19/16 01:30 INR 1.0 07/19/16 01:30 APTT 30 SECONDS (21-34) 07/19/16 01:30 - Constitutional Appears: Non-toxic, No Acute Distress - Head Exam Head Exam: ATRAUMATIC, NORMAL INSPECTION, NORMOCEPHALIC - ENT Exam ENT Exam: Mucous Membranes Dry - Respiratory Exam Respiratory Exam: Clear to Ausculation Bilateral, NORMAL BREATHING PATTERN. absent: Rhonchi, Wheezes - Cardiovascular Exam Cardiovascular Exam: RRR, +S1, +S2 - GI/Abdominal Exam GI & Abdominal Exam: Soft, Tenderness, Normal Bowel Sounds - Extremities Exam Extremities Exam: Normal Inspection. absent: Pedal Edema - Neurological Exam Neurological Exam: Alert, Awake, Oriented x3 Neuro motor strength exam: Left Upper Extremity: 5, Right Upper Extremity: 2/1, Left Lower Extremity: 5, Right Lower Extremity: 4 - Psychiatric Exam Psychiatric exam: Normal Affect, Normal Mood - Skin Skin Exam: Intact, Normal Color, Warm Assessment and Plan (1) TIA (transient ischemic attack) Assessment & Plan: Continue ASA and crestor Continue BP well controlled Continue lopressor, lisinopril, and amlodipine Status: Acute (2) Hypertension Assessment & Plan: Hemodynamically stable BP controlled Continue Lopressor, Lasix, and Amlodipine Status: Chronic <Royce Pedraza - Last Filed: 07/23/16 12:16> Objective - Vital Signs/Intake and Output Vital Signs (last 24 hours): Temp Pulse Resp BP Pulse Ox 97.6 F 102 H 20 110/77 100 07/23/16 07:50 07/23/16 09:27 07/23/16 07:50 07/23/16 09:27 07/23/16 07:50 Intake and Output: 07/23/16 07/23/16 06:59 18:59 Intake Total 110 Output Total 400 Balance -290 - Medications Medications: Current Medications Acetaminophen (Tylenol 325mg Tab) 650 mg PO Q6 PRN PRN Reason: Pain Last Admin: 07/22/16 23:04 Dose: 650 mg Amlodipine Besylate (Norvasc) 5 mg PO DAILY [facility] Last Admin: 07/23/16 09:18 Dose: 5 mg Aspirin (Ecotrin) 81 mg PO DAILY [facility] Last Admin: 07/23/16 09:18 Dose: 81 mg Enoxaparin Sodium (Lovenox) 40 mg SC DAILY [facility] Last Admin: 07/23/16 09:18 Dose: 40 mg Hydrochlorothiazide (Microzide) 12.5 mg PO DAILY [facility] Last Admin: 07/23/16 09:18 Dose: 12.5 mg Hydromorphone HCl (Dilaudid) 1 mg IVP Q8 PRN PRN Reason: Pain, severe (8-10) Levetiracetam (Keppra) 500 mg PO BID [facility] Last Admin: 07/23/16 09:18 Dose: 500 mg Lisinopril (Zestril) 10 mg PO DAILY [facility] Last Admin: 07/23/16 09:19 Dose: 10 mg Loratadine (Claritin) 10 mg PO DAILY [facility] Last Admin: 07/23/16 09:17 Dose: 10 mg Metformin HCl (Glucophage) 500 mg PO DAILY@0800 [facility] Last Admin: 07/23/16 07:53 Dose: 500 mg Metoprolol Tartrate (Lopressor) 25 mg PO BID [facility] Last Admin: 07/23/16 09:18 Dose: 25 mg Pantoprazole Sodium (Protonix Ec Tab) 40 mg PO DAILY [facility] Last Admin: 07/23/16 09:19 Dose: 40 mg Rosuvastatin Calcium (Crestor) 20 mg PO HS [facility] Last Admin: 07/22/16 21:52 Dose: 20 mg - Labs Labs: 07/22/16 14:03 07/22/16 14:03 PT 11.5 SECONDS (9.7-12.2) 07/19/16 01:30 INR 1.0 07/19/16 01:30 APTT 30 SECONDS (21-34) 07/19/16 01:30 Attending/Attestation - Attestation I have personally seen and examined this patient.: Yes I have fully participated in the care of the patient.: Yes I have reviewed all pertinent clinical information, including history, physical exam and plan: Yes Notes (Text): 07/23/16 12:16 Rx tylenol for pain will help bp
[2016-07-22 14:08] LABS: BASO # 0.1 K/uL (0.0-0.2); BASO % 0.9 % (0.0-2.0); EOS # 0.2 K/uL (0.0-0.7); HEMATOCRIT 37.8 % (34.0-47.0); LYMPH # 2.8 K/uL (1.0-4.3); LYMPH % 34.5 % (20.0-40.0); MEAN CELL VOLUME 71.9 fL (81.0-99.0); MEAN CORPUSCULAR HEMOGLOBIN 23.3 pg (27.0-31.0); MEAN CORPUSCULAR HGB CONC 32.4 g/dL (33.0-37.0); MEAN PLATELET VOLUME 7.1 fL (7.2-11.7); MONO # 0.5 K/uL (0.0-0.8); MONO % 6.5 % (0.0-10.0); NRBC % 0.1 % (0.0-2.0); WHITE BLOOD COUNT 8.1 K/uL (4.8-10.8)
[2016-07-22 14:29] LABS: CHLORIDE 96 mmol/L (98-107); POTASSIUM 3.6 mmol/L (3.6-5.2); SODIUM 137 mmol/L (132-148)
[2016-07-22 14:31] LABS: BILIRUBIN,TOTAL 0.6 mg/dL (0.2-1.3); GFR AFRICAN-AMERICAN > 60
[2016-07-22 14:32] LABS: ALB/GLOB RATIO 1.1 (1.0-2.1); ALKALINE PHOSPHATASE 124 U/L (38-126); ALT/SGPT 32 U/L (9-52); AST/SGOT 26 U/L (14-36); BLOOD UREA NITROGEN 9 mg/dL (7-17); CALCIUM 9.6 mg/dl (8.6-10.4); CARBON DIOXIDE 26 mmol/L (22-30); GLUCOSE,RANDOM 114 mg/dL (65-105); TOTAL PROTEIN 8.7 g/dL (6.3-8.3)
--- NOTE | 2016-07-22 16:18 | CP.PCM.PN ---
Subjective - Date & Time of Evaluation Date of Evaluation: 07/22/16 Time of Evaluation: 11:40 - Subjective Subjective: clinically same Objective - Vital Signs/Intake and Output Vital Signs (last 24 hours): Temp Pulse Resp BP Pulse Ox 97.7 F 68 20 148/89 96 07/22/16 08:30 07/22/16 08:30 07/22/16 08:30 07/22/16 09:56 07/22/16 08:30 Intake and Output: 07/22/16 07/22/16 06:59 18:59 Intake Total 120 Balance 120 - Medications Medications: Current Medications Acetaminophen (Tylenol 325mg Tab) 650 mg PO Q6 PRN PRN Reason: Pain Last Admin: 07/22/16 10:47 Dose: 650 mg Amlodipine Besylate (Norvasc) 5 mg PO DAILY [facility] Last Admin: 07/22/16 09:56 Dose: 5 mg Aspirin (Ecotrin) 81 mg PO DAILY [facility] Last Admin: 07/22/16 09:56 Dose: 81 mg Enoxaparin Sodium (Lovenox) 40 mg SC DAILY [facility] Last Admin: 07/22/16 09:55 Dose: 40 mg Hydrochlorothiazide (Microzide) 12.5 mg PO DAILY [facility] Last Admin: 07/22/16 09:56 Dose: 12.5 mg Hydromorphone HCl (Dilaudid) 1 mg IVP Q8 PRN PRN Reason: Pain, severe (8-10) Levetiracetam (Keppra) 500 mg PO BID [facility] Last Admin: 07/22/16 09:56 Dose: 500 mg Lisinopril (Zestril) 10 mg PO DAILY [facility] Last Admin: 07/22/16 09:56 Dose: 10 mg Loratadine (Claritin) 10 mg PO DAILY [facility] Last Admin: 07/22/16 09:56 Dose: 10 mg Metformin HCl (Glucophage) 500 mg PO DAILY@0800 [facility] Last Admin: 07/22/16 08:32 Dose: 500 mg Metoprolol Tartrate (Lopressor) 25 mg PO BID [facility] Last Admin: 07/22/16 09:56 Dose: 25 mg Pantoprazole Sodium (Protonix Ec Tab) 40 mg PO DAILY [facility] Rosuvastatin Calcium (Crestor) 20 mg PO HS [facility] Last Admin: 07/21/16 21:35 Dose: 20 mg - Labs Labs: 07/22/16 14:03 07/22/16 14:03 PT 11.5 SECONDS (9.7-12.2) 07/19/16 01:30 INR 1.0 07/19/16 01:30 APTT 30 SECONDS (21-34) 07/19/16 01:30 - Constitutional Appears: Well - Head Exam Head Exam: ATRAUMATIC, NORMAL INSPECTION, NORMOCEPHALIC - Eye Exam Eye Exam: EOMI, Normal appearance, PERRL Pupil Exam: NORMAL ACCOMODATION, PERRL - ENT Exam ENT Exam: Mucous Membranes Moist, Normal Exam - Neck Exam Neck Exam: Full ROM, Normal Inspection. absent: Lymphadenopathy - Respiratory Exam Respiratory Exam: Decreased Breath Sounds - Cardiovascular Exam Cardiovascular Exam: REGULAR RHYTHM, +S1, +S2 - GI/Abdominal Exam GI & Abdominal Exam: Soft, Diminished Bowel Sounds - Rectal Exam Rectal Exam: Deferred
[2016-07-23] MEDS: Enoxaparin 40 mg Syringe SC SCH (09:18)
--- NOTE | 2016-07-23 09:22 | CP.PCM.PN ---
<Jaime Pacheco - Last Filed: 07/23/16 09:20> Subjective - Date & Time of Evaluation Date of Evaluation: 07/23/16 Time of Evaluation: 09:20 - Subjective Subjective: Progress Note for Dr. Pedraza Pt seen and examined at bedside. Pt with no acute events overnight as per nursing. Pt is resting comfortably in bed. Pain remains an issue at this time, although she states it is slightly better than yesterday. Denies CP, SOB, N/V/D. Objective - Vital Signs/Intake and Output Vital Signs (last 24 hours): Temp Pulse Resp BP Pulse Ox 97.6 F 54 L 20 128/85 100 07/23/16 07:50 07/23/16 07:50 07/23/16 07:50 07/23/16 07:50 07/23/16 07:50 Intake and Output: 07/23/16 07/23/16 06:59 18:59 Intake Total 110 Output Total 400 Balance -290 - Medications Medications: Current Medications Acetaminophen (Tylenol 325mg Tab) 650 mg PO Q6 PRN PRN Reason: Pain Last Admin: 07/22/16 23:04 Dose: 650 mg Amlodipine Besylate (Norvasc) 5 mg PO DAILY [facility] Last Admin: 07/22/16 09:56 Dose: 5 mg Aspirin (Ecotrin) 81 mg PO DAILY [facility] Last Admin: 07/22/16 09:56 Dose: 81 mg Enoxaparin Sodium (Lovenox) 40 mg SC DAILY [facility] Last Admin: 07/22/16 09:55 Dose: 40 mg Hydrochlorothiazide (Microzide) 12.5 mg PO DAILY [facility] Last Admin: 07/22/16 09:56 Dose: 12.5 mg Hydromorphone HCl (Dilaudid) 1 mg IVP Q8 PRN PRN Reason: Pain, severe (8-10) Levetiracetam (Keppra) 500 mg PO BID [facility] Last Admin: 07/22/16 21:53 Dose: 500 mg Lisinopril (Zestril) 10 mg PO DAILY [facility] Last Admin: 07/22/16 09:56 Dose: 10 mg Loratadine (Claritin) 10 mg PO DAILY [facility] Last Admin: 07/22/16 09:56 Dose: 10 mg Metformin HCl (Glucophage) 500 mg PO DAILY@0800 [facility] Last Admin: 07/23/16 07:53 Dose: 500 mg Metoprolol Tartrate (Lopressor) 25 mg PO BID [facility] Last Admin: 07/22/16 21:59 Dose: 25 mg Pantoprazole Sodium (Protonix Ec Tab) 40 mg PO DAILY [facility] Rosuvastatin Calcium (Crestor) 20 mg PO HS [facility] Last Admin: 07/22/16 21:52 Dose: 20 mg - Labs Labs: 07/22/16 14:03 07/22/16 14:03 PT 11.5 SECONDS (9.7-12.2) 07/19/16 01:30 INR 1.0 07/19/16 01:30 APTT 30 SECONDS (21-34) 07/19/16 01:30 - Constitutional Appears: Non-toxic, No Acute Distress - Head Exam Head Exam: ATRAUMATIC, NORMAL INSPECTION, NORMOCEPHALIC - ENT Exam ENT Exam: Mucous Membranes Moist - Respiratory Exam Respiratory Exam: Clear to Ausculation Bilateral, NORMAL BREATHING PATTERN. absent: Rhonchi, Wheezes - Cardiovascular Exam Cardiovascular Exam: RRR, +S1, +S2 - GI/Abdominal Exam GI & Abdominal Exam: Soft, Normal Bowel Sounds. absent: Tenderness - Extremities Exam Extremities Exam: Normal Inspection. absent: Pedal Edema - Neurological Exam Neuro motor strength exam: Left Upper Extremity: 5, Right Upper Extremity: 2/1, Left Lower Extremity: 5, Right Lower Extremity: 4 - Skin Skin Exam: Intact, Normal Color, Warm Assessment and Plan (1) TIA (transient ischemic attack) Assessment & Plan: Hemodynamically stable Continue current medical management Status: Acute (2) Hypertension Assessment & Plan: BP controlled with current medical regimen Continue Norvasc, HCTZ, Lopressor, and Lisinopril Status: Chronic <Royce Pedraza - Last Filed: 07/23/16 10:00> Objective - Vital Signs/Intake and Output Vital Signs (last 24 hours): Temp Pulse Resp BP Pulse Ox 97.6 F 102 H 20 110/77 100 07/23/16 07:50 07/23/16 09:27 07/23/16 07:50 07/23/16 09:27 07/23/16 07:50 Intake and Output: 07/23/16 07/23/16 06:59 18:59 Intake Total 110 Output Total 400 Balance -290 - Medications Medications: Current Medications Acetaminophen (Tylenol 325mg Tab) 650 mg PO Q6 PRN PRN Reason: Pain Last Admin: 07/22/16 23:04 Dose: 650 mg Amlodipine Besylate (Norvasc) 5 mg PO DAILY [facility] Last Admin: 07/23/16 09:18 Dose: 5 mg Aspirin (Ecotrin) 81 mg PO DAILY [facility] Last Admin: 07/23/16 09:18 Dose: 81 mg Enoxaparin Sodium (Lovenox) 40 mg SC DAILY [facility] Last Admin: 07/23/16 09:18 Dose: 40 mg Hydrochlorothiazide (Microzide) 12.5 mg PO DAILY [facility] Last Admin: 07/23/16 09:18 Dose: 12.5 mg Hydromorphone HCl (Dilaudid) 1 mg IVP Q8 PRN PRN Reason: Pain, severe (8-10) Levetiracetam (Keppra) 500 mg PO BID [facility] Last Admin: 07/23/16 09:18 Dose: 500 mg Lisinopril (Zestril) 10 mg PO DAILY [facility] Last Admin: 07/23/16 09:19 Dose: 10 mg Loratadine (Claritin) 10 mg PO DAILY [facility] Last Admin: 07/23/16 09:17 Dose: 10 mg Metformin HCl (Glucophage) 500 mg PO DAILY@0800 [facility] Last Admin: 07/23/16 07:53 Dose: 500 mg Metoprolol Tartrate (Lopressor) 25 mg PO BID [facility] Last Admin: 07/23/16 09:18 Dose: 25 mg Pantoprazole Sodium (Protonix Ec Tab) 40 mg PO DAILY [facility] Last Admin: 07/23/16 09:19 Dose: 40 mg Rosuvastatin Calcium (Crestor) 20 mg PO HS [facility] Last Admin: 07/22/16 21:52 Dose: 20 mg - Labs Labs: 07/22/16 14:03 07/22/16 14:03 PT 11.5 SECONDS (9.7-12.2) 07/19/16 01:30 INR 1.0 07/19/16 01:30 APTT 30 SECONDS (21-34) 07/19/16 01:30 Attending/Attestation - Attestation I have personally seen and examined this patient.: Yes I have fully participated in the care of the patient.: Yes I have reviewed all pertinent clinical information, including history, physical exam and plan: Yes Notes (Text): 07/23/16 09:59 Hemodynamically stable contine BP meds
[2016-07-23] MEDS ORDERED: Pantoprazole 40 mg EC Tab PO SCH (10:00)
[2016-07-23 14:13] LABS: BASO # 0.1 K/uL (0.0-0.2); EOS # 0.4 K/uL (0.0-0.7); EOS % 4.4 % (0.0-4.0); HEMATOCRIT 37.4 % (34.0-47.0); LYMPH # 3.6 K/uL (1.0-4.3); MEAN CELL VOLUME 72.5 fL (81.0-99.0); MEAN CORPUSCULAR HEMOGLOBIN 22.8 pg (27.0-31.0); MEAN CORPUSCULAR HGB CONC 31.5 g/dL (33.0-37.0); MEAN PLATELET VOLUME 7.3 fL (7.2-11.7); MONO # 0.6 K/uL (0.0-0.8); MONO % 6.5 % (0.0-10.0); NRBC % 0.1 % (0.0-2.0); RED CELL DISTRIBUTION WIDTH 18.1 % (11.5-14.5); WHITE BLOOD COUNT 8.9 K/uL (4.8-10.8)
[2016-07-23 14:24] LABS: CHLORIDE 97 mmol/L (98-107)
[2016-07-23 14:25] LABS: POTASSIUM 3.3 mmol/L (3.6-5.2); SODIUM 138 mmol/L (132-148)
[2016-07-23 14:27] LABS: ALB/GLOB RATIO 1.2 (1.0-2.1); ALKALINE PHOSPHATASE 105 U/L (38-126); AST/SGOT 25 U/L (14-36); BILIRUBIN,TOTAL 0.4 mg/dL (0.2-1.3); BLOOD UREA NITROGEN 16 mg/dL (7-17); CARBON DIOXIDE 26 mmol/L (22-30); GFR AFRICAN-AMERICAN > 60; GLUCOSE,RANDOM 119 mg/dL (65-105); TOTAL PROTEIN 8.2 g/dL (6.3-8.3)
[2016-07-23 14:28] LABS: ALT/SGPT 38 U/L (9-52); CALCIUM 9.7 mg/dl (8.6-10.4)
[2016-07-23 15:25] VITALS: PULSE 74; RESP 18; TEMP 98.7; O2SAT 97
[2016-07-23] MEDS ORDERED: Potassium Chloride 20 mEq/15 ml LIQ UD PO ONE (16:10)
[2016-07-23] MEDS ORDERED: Potassium Chloride 20 mEq/15 ml LIQ UD PO STA (17:15)
--- NOTE | 2016-07-23 17:24 | CP.PCM.PN ---
Subjective - Date & Time of Evaluation Date of Evaluation: 07/23/16 Time of Evaluation: 12:00 - Subjective Subjective: clinically same Objective - Vital Signs/Intake and Output Vital Signs (last 24 hours): Temp Pulse Resp BP Pulse Ox 98.7 F 74 18 124/85 97 07/23/16 15:22 07/23/16 15:22 07/23/16 15:22 07/23/16 15:22 07/23/16 15:22 Intake and Output: 07/23/16 07/23/16 06:59 18:59 Intake Total 110 Output Total 400 Balance -290 - Medications Medications: Current Medications Acetaminophen (Tylenol 325mg Tab) 650 mg PO Q6 PRN PRN Reason: Pain Last Admin: 07/22/16 23:04 Dose: 650 mg Amlodipine Besylate (Norvasc) 5 mg PO DAILY [facility] Last Admin: 07/23/16 09:18 Dose: 5 mg Aspirin (Ecotrin) 81 mg PO DAILY [facility] Last Admin: 07/23/16 09:18 Dose: 81 mg Enoxaparin Sodium (Lovenox) 40 mg SC DAILY [facility] Last Admin: 07/23/16 09:18 Dose: 40 mg Hydrochlorothiazide (Microzide) 12.5 mg PO DAILY [facility] Last Admin: 07/23/16 09:18 Dose: 12.5 mg Hydromorphone HCl (Dilaudid) 1 mg IVP Q8 PRN PRN Reason: Pain, severe (8-10) Levetiracetam (Keppra) 500 mg PO BID [facility] Last Admin: 07/23/16 09:18 Dose: 500 mg Lisinopril (Zestril) 10 mg PO DAILY [facility] Last Admin: 07/23/16 09:19 Dose: 10 mg Loratadine (Claritin) 10 mg PO DAILY [facility] Last Admin: 07/23/16 09:17 Dose: 10 mg Metformin HCl (Glucophage) 500 mg PO DAILY@0800 [facility] Last Admin: 07/23/16 07:53 Dose: 500 mg Metoprolol Tartrate (Lopressor) 25 mg PO BID [facility] Last Admin: 07/23/16 09:18 Dose: 25 mg Pantoprazole Sodium (Protonix Ec Tab) 40 mg PO DAILY [facility] Last Admin: 07/23/16 09:19 Dose: 40 mg Rosuvastatin Calcium (Crestor) 20 mg PO HS [facility] Last Admin: 07/22/16 21:52 Dose: 20 mg - Labs Labs: 07/23/16 14:05 07/23/16 14:05 PT 11.5 SECONDS (9.7-12.2) 07/19/16 01:30 INR 1.0 07/19/16 01:30 APTT 30 SECONDS (21-34) 07/19/16 01:30 - Constitutional Appears: Well - Head Exam Head Exam: ATRAUMATIC, NORMAL INSPECTION, NORMOCEPHALIC - Eye Exam Eye Exam: EOMI, Normal appearance, PERRL Pupil Exam: NORMAL ACCOMODATION, PERRL - ENT Exam ENT Exam: Mucous Membranes Moist, Normal Exam - Neck Exam Neck Exam: Full ROM, Normal Inspection. absent: Lymphadenopathy - Respiratory Exam Respiratory Exam: Decreased Breath Sounds - Cardiovascular Exam Cardiovascular Exam: REGULAR RHYTHM, +S1, +S2 - GI/Abdominal Exam GI & Abdominal Exam: Soft, Diminished Bowel Sounds - Rectal Exam Rectal Exam: Deferred
[2016-07-23 18:09] VITALS: BP 124/75
== END 2016-07-23 19:40 | DRG 134 ==
LOC: C.ER 00:57 → C.6T 02:26
PROVIDERS: ADMIT Internal Medicine Nephrology; ATTEND Internal Medicine Nephrology
DX: I16.0 Hypertensive urgency (principal); I69.351 Hemiplegia and hemiparesis following cerebral infarction affecting right dominant side; E11.9 Type 2 diabetes mellitus without complications; I10 Essential (primary) hypertension; E78.00 Pure hypercholesterolemia, unspecified; J45.909 Unspecified asthma, uncomplicated; F17.210 Nicotine dependence, cigarettes, uncomplicated; R29.810 Facial weakness; R47.81 Slurred speech; Z87.01 Personal history of pneumonia (recurrent); Z96.642 Presence of left artificial hip joint; H54.8 Legal blindness, as defined in USA; Z87.442 Personal history of urinary calculi; Z91.81 History of falling; Z79.84 Long term (current) use of oral hypoglycemic drugs; Z79.82 Long term (current) use of aspirin; Z88.8 Allergy status to other drugs, medicaments and biological substances; Z91.018 Allergy to other foods